=== PATIENT | female | born 1990 | race Hispanic/Latino ===

== ENCOUNTER → 2017-07-05 | Outpatient (CLI) | payer MEDICAID ==
[~2017-07-05] MED LIST: GABA-531 PO; IOPAMIDOL-370 75 ML VIAL IV ONE; NORG1TAB13 PO; ZOLP5TAB2 PO
== END | disposition home or self-care (01) ==
LOC: OIH 09:36
DX: R10.31 Right lower quadrant pain (principal); R10.2 Pelvic and perineal pain
CPT/HCPCS: 74178; Q9967

== ENCOUNTER 2017-08-05 07:22 | Day surgery (SDC) | payer MEDICAID ==
[2017-08-04 16:42] LABS: BASOPHILS % (AUTO) 0.6 % (0.0-5.0); EOSINOPHILS % (AUTO) 3.4 % (0.0-8.0); HEMATOCRIT 36.8 % (36-48); LYMPHOCYTES % (AUTO) 33.4 % (21.0-51.0); MEAN CORPUSCULAR HEMOGLOBIN 27.4 pg (27.0-33.0); MEAN CORPUSCULAR HGB CONC 33.4 g/dL (32.0-36.0); MEAN CORPUSCULAR VOLUME 81.9 fL (79-99); MONOCYTES % (AUTO) 8.9 % (3.0-13.0); NEUTROPHILS % (AUTO) 53.7 % (40.0-77.0); NUCLEATED RED BLOOD CELLS 0.1 % (0.0-0.19); PLATELET COUNT (AUTO) 308 K/uL (130-400); RED BLOOD CELL COUNT(AUTO) 4.49 MIL/uL (4.00-5.50); RED CELL DISTRIBUTION WIDTH 15.1 % (11.0-15.5); WHITE BLOOD COUNT (AUTO) 5.1 K/uL (4.8-10.8)
[2017-08-04 16:59] VITALS: BP 121/72
[~2017-08-05] VITALS: Ht 156.2 cm; Wt 59.7 kg
[2017-08-05] VITALS (14 sets, daily range): BP systolic 104–124; BP diastolic 55–86
[~2017-08-05 07:22] MED LIST changes: -IOPAMIDOL-370 75 ML VIAL IV ONE; -NORG1TAB13 PO
[2017-08-05] MEDS ORDERED: LACTATED RINGERS 1000ML 1,000 ML IV ONE (08:10)
[2017-08-05] MEDS ORDERED: CALDOLOR 800MG+NS 250ML 250 ML IV ONE (08:11)
[2017-08-05] MEDS ORDERED: NORG1TAB13 PO (08:47)
[2017-08-05] MEDS ORDERED: BUPIVACAINE/PF 0.25% 30ML VIAL IJ ONE (09:29)
[2017-08-05] MEDS ORDERED: MIDAZOLAM HCL 1 MG/ML 2ML VIAL ONE (11:21)
[2017-08-05] MEDS ORDERED: PROPOFOL 10 MG/ML 20ML VIAL IV ONE (11:21)
[2017-08-05] MEDS ORDERED: GLYCOPYRROLATE 0.2 MG/ML 5 ML VIAL ONE (11:21)
[2017-08-05] MEDS ORDERED: DEXAMETHASONE SOD PHOSPHATE 10MG/ML 1ML VIAL ONE (11:21)
[2017-08-05] MEDS ORDERED: NEOSTIGMINE 5MG/5ML SYR IV ONE (11:21)
[2017-08-05] MEDS ORDERED: FENTANYL CITRATE PF 50 MCG/1 ML 2ML VIAL ONE (11:21)
[2017-08-05] MEDS ORDERED: LIDOCAINE PF 2% 5ML ABBOJECT ONE (11:21)
[2017-08-05] MEDS ORDERED: MEPERIDINE-PF 25 MG/ML SYG ONE ×2 (12:21→12:37)
== END 2017-08-05 13:53 | disposition home or self-care (01) ==
LOC: DAH 07:22
DX: N73.6 Female pelvic peritoneal adhesions (postinfective) (principal); N80.1 Endometriosis of ovary; J45.909 Unspecified asthma, uncomplicated; G40.89 Other seizures; K21.9 Gastro-esophageal reflux disease without esophagitis; F41.9 Anxiety disorder, unspecified; E66.9 Obesity, unspecified; Z79.899 Other long term (current) drug therapy
CPT/HCPCS: 36415; 58662; 84703; 85025; A4215; A4351; A4510; A4600; A4649; C1769 ×2; J1100; J1741; J2001; J2175 ×2; J2250; J2704; J2710; J3010; J3490 ×2; J7030; J7120 ×2

== ENCOUNTER 2020-12-01 16:06 | Emergency (ER) | payer MEDICAID ==
[~2020-12-01] VITALS: Ht 154.9 cm; Wt 75.7 kg
[~2020-12-01 16:06] MED LIST changes: +NORG1TAB13 PO
[2020-12-01 16:58] LABS: BASOPHILS % (AUTO) 0.3 % (0.0-5.0); EOSINOPHILS % (AUTO) 1.9 % (0.0-8.0); HEMATOCRIT 34.1 % (36-48); LYMPHOCYTES % (AUTO) 22.8 % (21.0-51.0); MEAN CORPUSCULAR HEMOGLOBIN 27.4 pg (27.0-33.0); MEAN CORPUSCULAR HGB CONC 33.4 g/dL (32.0-36.0); MONOCYTES % (AUTO) 7.1 % (3.0-13.0); NEUTROPHILS % (AUTO) 67.6 % (40.0-77.0); PLATELET COUNT (AUTO) 249 K/uL (130-400); RED BLOOD CELL COUNT(AUTO) 4.16 MIL/uL (4.00-5.50); RED CELL DISTRIBUTION WIDTH 15.1 % (11.0-15.5); WHITE BLOOD COUNT (AUTO) 6.9 K/uL (4.8-10.8)
[2020-12-01 17:12] LABS: CREATININE 0.4 mg/dL (0.5-1.5); POTASSIUM 3.6 mmol/L (3.5-5.1)
[2020-12-01 17:22] LABS: ALBUMIN 3.1 g/dL (3.5-5.0); BILIRUBIN,TOTAL 0.2 mg/dL (0.2-1.0); TOTAL PROTEIN, SERUM 7.5 g/dL (6.0-8.3)
[2020-12-01 18:23] VITALS: BP 118/81
== END 2020-12-01 18:23 | disposition home or self-care (01) ==
LOC: EDH 16:06
DX: O20.0 Threatened abortion (principal); Z3A.16 16 weeks gestation of pregnancy; Z79.899 Other long term (current) drug therapy
CPT/HCPCS: 36415; 76805; 80053; 84703; 85025; 86900; 86901

== ENCOUNTER 2020-12-17 22:39 | Emergency (ER) | payer MEDICAID ==
[~2020-12-17] VITALS: Ht 154.9 cm; Wt 72.6 kg
[2020-12-17 23:17] VITALS: BP 100/72
[2020-12-17 23:30] LABS: BASOPHILS % (AUTO) 0.1 % (0.0-5.0); EOSINOPHILS % (AUTO) 1.9 % (0.0-8.0); HEMATOCRIT 31.8 % (36-48); LYMPHOCYTES % (AUTO) 23.2 % (21.0-51.0); MEAN CORPUSCULAR HEMOGLOBIN 27.4 pg (27.0-33.0); MONOCYTES % (AUTO) 6.8 % (3.0-13.0); NEUTROPHILS % (AUTO) 67.6 % (40.0-77.0); PLATELET COUNT (AUTO) 245 K/uL (130-400); RED BLOOD CELL COUNT(AUTO) 3.83 MIL/uL (4.00-5.50); RED CELL DISTRIBUTION WIDTH 15.1 % (11.0-15.5); WHITE BLOOD COUNT (AUTO) 7.8 K/uL (4.8-10.8)
[2020-12-17 23:44] LABS: CREATININE 0.5 mg/dL (0.5-1.5); POTASSIUM 3.2 mmol/L (3.5-5.1)
[2020-12-18 00:10] LABS: ALBUMIN 3.1 g/dL (3.5-5.0); BILIRUBIN,TOTAL 0.2 mg/dL (0.2-1.0); TOTAL PROTEIN, SERUM 7.3 g/dL (6.0-8.3)
[2020-12-18 00:50] VITALS: BP 112/64
[2020-12-18 01:01] LABS: APPEARANCE,URINE Cloudy (CLEAR); BILIRUBIN,URINE Negative (NEGATIVE); COLOR,URINE Yellow (YELLOW); GLUCOSE, URINE (UA) Negative (NEGATIVE); KETONES,URINE 15 mg/dL (NEGATIVE); LEUKOCYTE ESTERASE ,URINE Negative (NEGATIVE); NITRATE,URINE Negative (NEGATIVE); OCCULT BLOOD,URINE Negative (NEGATIVE); PH,URINE 5.5 (5.0-8.0); PROTEIN,URINE Negative (NEGATIVE)
[2020-12-18] MEDS ORDERED: ACETAMINOPHEN 500 MG TABLET ONE (01:47)
[2020-12-18] MEDS ORDERED: KCL 20 MEQ ERTAB PO ONE ×2 (01:47→02:00)
[2020-12-18 01:50] VITALS: BP 115/60
[2020-12-18] MEDS ORDERED: ACETAMINOPHEN 500 MG TABLET PO ONE (02:00)
== END 2020-12-18 01:53 | disposition home or self-care (01) ==
LOC: EDH 22:39
DX: O99.282 Endocrine, nutritional and metabolic diseases complicating pregnancy, second trimester (principal); E87.6 Hypokalemia; O20.9 Hemorrhage in early pregnancy, unspecified; Z3A.18 18 weeks gestation of pregnancy; Z79.899 Other long term (current) drug therapy
CPT/HCPCS: 36415; 76805; 80053; 81003; 83690; 84702; 85025; 86900; 86901; 87088

== ENCOUNTER 2021-03-07 11:29 | Observation (INO) | payer MEDICAID ==
[~2021-03-07] VITALS: Ht 154.9 cm; Wt 81.2 kg
[2021-03-07 11:32] VITALS: BP 107/69
[2021-03-07 13:14] LABS: APPEARANCE,URINE Clear (CLEAR); BILIRUBIN,URINE Negative (NEGATIVE); COLOR,URINE Yellow (YELLOW); GLUCOSE, URINE (UA) Negative (NEGATIVE); KETONES,URINE 15 mg/dL (NEGATIVE); LEUKOCYTE ESTERASE ,URINE Small (NEGATIVE); NITRATE,URINE Negative (NEGATIVE); OCCULT BLOOD,URINE Moderate (NEGATIVE); PH,URINE 5.5 (5.0-8.0); PROTEIN,URINE Negative (NEGATIVE); UROBILINOGEN,URINE 0.2 mg/dL (0.2-1.0)
[2021-03-07 13:26] LABS: AMPHET/METH SCREEN,URINE NEGATIVE (NEGATIVE); BARBITURATE SCREEN, URINE NEGATIVE (NEGATIVE); BENZODIAZEPINES SCREEN,URINE NEGATIVE (NEGATIVE); COCAINE SCREEN,URINE NEGATIVE (NEGATIVE); OPIATE SCREEN,URINE NEGATIVE (NEGATIVE); PHENCYCLIDINE SCREEN,URINE NEGATIVE (NEGATIVE)
[2021-03-07 13:28] LABS: BACTERIA,URINE Rare /HPF (None Seen); RBC,URINE 0-1 /HPF (0-1); SQUAMOUS EPITHELIAL CELL,UR Rare /HPF (0-2); WBC,URINE 0-1 /HPF (0-1)
[2021-03-07] MEDS ORDERED: CELESTONE SOLUSPAN 6 MG/ML 5ML VIAL IM SCH (13:30)
[2021-03-07 13:33] LABS: CANNABINOID SCREEN,URINE NEGATIVE (NEGATIVE)
== END 2021-03-07 13:45 | disposition home or self-care (01) ==
LOC: EDH 11:29 → LDH 11:30
PROVIDERS: ADMIT Specialist; ATTEND Specialist
DX: O46.93 Antepartum hemorrhage, unspecified, third trimester (principal); O62.9 Abnormality of forces of labor, unspecified; O26.893 Other specified pregnancy related conditions, third trimester; R10.2 Pelvic and perineal pain; Z3A.29 29 weeks gestation of pregnancy; Z79.899 Other long term (current) drug therapy
CPT/HCPCS: 59025; 76805; 80305; 81001; 96372; G0378 ×2; G0379; J0702

== ENCOUNTER 2021-03-08 13:58 | Observation (INO) | payer MEDICAID ==
[~2021-03-08] VITALS: Ht 154.9 cm; Wt 77.6 kg
[2021-03-08] MEDS ORDERED: CELESTONE SOLUSPAN 6 MG/ML 5ML VIAL IM SCH (14:30)
[2021-03-08 14:32] VITALS: BP 108/69
== END 2021-03-08 15:25 | disposition home or self-care (01) ==
LOC: LDH 13:58
PROVIDERS: ADMIT Obstetrics & Gynecology; ATTEND Obstetrics & Gynecology
DX: O46.93 Antepartum hemorrhage, unspecified, third trimester (principal); O62.9 Abnormality of forces of labor, unspecified; Z3A.30 30 weeks gestation of pregnancy
CPT/HCPCS: 59025; 96372; G0378

== ENCOUNTER 2021-03-23 08:58 | Observation (INO) | payer MEDICAID ==
[~2021-03-23] VITALS: Ht 154.9 cm; Wt 79.8 kg
[2021-03-23 09:29] LABS: APPEARANCE,URINE CLOUDY (CLEAR); BILIRUBIN,URINE NEGATIVE (NEGATIVE); COLOR,URINE YELLOW (YELLOW); GLUCOSE, URINE (UA) NEGATIVE (NEGATIVE); KETONES,URINE NEGATIVE (NEGATIVE); LEUKOCYTE ESTERASE ,URINE LARGE (NEGATIVE); NITRATE,URINE NEGATIVE (NEGATIVE); OCCULT BLOOD,URINE NEGATIVE (NEGATIVE); PROTEIN,URINE NEGATIVE (NEGATIVE); UROBILINOGEN,URINE 0.2 mg/dL (0.2-1.0)
[2021-03-23 09:47] LABS: BACTERIA,URINE Many /HPF (None Seen); RBC,URINE None Seen /HPF (0-1); YEAST,URINE BUDDING Few /HPF (None Seen)
[2021-03-23 09:48] LABS: MUCUS,URINE Moderate LPF (None Seen); SQUAMOUS EPITHELIAL CELL,UR 30-50 /HPF (0-2)
[2021-03-23 10:16] VITALS: BP 114/71
[2021-03-23] MEDS ORDERED: CLIN-141 PO (12:08)
== END 2021-03-23 10:20 | disposition home or self-care (01) ==
LOC: EDH 08:58 → LDH 08:59
PROVIDERS: ADMIT Obstetrics & Gynecology; ATTEND Obstetrics & Gynecology
DX: O26.893 Other specified pregnancy related conditions, third trimester (principal); L05.91 Pilonidal cyst without abscess; Z3A.31 31 weeks gestation of pregnancy; Z79.899 Other long term (current) drug therapy
CPT/HCPCS: 59025; 81001; 87088; G0378; G0379

== ENCOUNTER 2021-03-23 10:30 | Emergency (ER) | payer MEDICAID ==
[~2021-03-23] VITALS: Ht 154.9 cm; Wt 79.8 kg
[2021-03-23] MEDS ORDERED: LIDOCAINE HCL 1% 10 ML VIAL ONE (10:52)
[2021-03-23 11:47] VITALS: BP 124/72
[2021-03-23] MEDS ORDERED: CLIN-141 PO (12:08)
[2021-03-23] MEDS ORDERED: CLINDAMYCIN 150 MG CAP PO SCH (12:30)
== END 2021-03-23 12:21 | disposition home or self-care (01) ==
LOC: EDH 10:30
DX: O99.713 Diseases of the skin and subcutaneous tissue complicating pregnancy, third trimester (principal); L05.01 Pilonidal cyst with abscess; Z3A.31 31 weeks gestation of pregnancy; Z79.899 Other long term (current) drug therapy
CPT/HCPCS: 10080; 59025; 81001; 87070; 87076; 87088; 99283; G0378; G0379; J3490

== ENCOUNTER 2021-04-19 22:02 | Observation (INO) | payer MEDICAID ==
[~2021-04-19] VITALS: Ht 154.9 cm; Wt 84.4 kg
[~2021-04-19 22:02] MED LIST changes: +CLIN-141 PO
[2021-04-19 22:48] LABS: APPEARANCE,URINE Clear (CLEAR); BILIRUBIN,URINE Negative (NEGATIVE); COLOR,URINE Yellow (YELLOW); GLUCOSE, URINE (UA) Negative (NEGATIVE); KETONES,URINE Negative (NEGATIVE); LEUKOCYTE ESTERASE ,URINE Large (NEGATIVE); NITRATE,URINE Negative (NEGATIVE); OCCULT BLOOD,URINE Negative (NEGATIVE); PROTEIN,URINE Negative (NEGATIVE); UROBILINOGEN,URINE 0.2 mg/dL (0.2-1.0)
[2021-04-19 23:07] LABS: BACTERIA,URINE Few /HPF (None Seen); RBC,URINE 0-1 /HPF (0-1); YEAST,URINE BUDDING Few /HPF (None Seen)
[2021-04-19 23:33] VITALS: BP 118/76
[2021-04-19 23:51] LABS: BASOPHILS % (AUTO) 0.4 % (0.0-5.0); EOSINOPHILS % (AUTO) 1.4 % (0.0-8.0); LYMPHOCYTES % (AUTO) 18.1 % (21.0-51.0); MEAN CORPUSCULAR HEMOGLOBIN 23.4 pg (27.0-33.0); MEAN CORPUSCULAR HGB CONC 30.4 g/dL (32.0-36.0); MEAN CORPUSCULAR VOLUME 77.2 fL (79-99); MONOCYTES % (AUTO) 7.6 % (3.0-13.0); NEUTROPHILS % (AUTO) 71.3 % (40.0-77.0); NUCLEATED RED BLOOD CELLS 0.9 % (0.0-0.19); PLATELET COUNT (AUTO) 198 K/uL (130-400); RED BLOOD CELL COUNT(AUTO) 3.37 MIL/uL (4.00-5.50); RED CELL DISTRIBUTION WIDTH 16.3 % (11.0-15.5); WHITE BLOOD COUNT (AUTO) 7.7 K/uL (4.8-10.8)
[2021-04-20] MEDS ORDERED: LACTATED RINGERS 1000ML IV ONE
[2021-04-20 00:01] LABS: CREATININE 0.5 mg/dL (0.5-1.5); POTASSIUM 3.6 mmol/L (3.5-5.1)
[2021-04-20 00:04] LABS: INR 0.91 (0.85-1.15)
[2021-04-20 00:05] LABS: PARTIAL THROMBOPLASTIN TIME 24.4 SEC (26.3-35.5)
[2021-04-20 00:06] LABS: ALBUMIN 2.6 g/dL (3.5-5.0); BILIRUBIN,TOTAL 0.2 mg/dL (0.2-1.0); TOTAL PROTEIN, SERUM 6.5 g/dL (6.0-8.3); URIC ACID 3.9 mg/dL (2.6-7.2)
[2021-04-20] MEDS ORDERED: ACETAMINOPHEN WITH CODEINE 1 TAB TAB PO PRN (00:30)
== END 2021-04-20 01:00 | disposition home or self-care (01) ==
LOC: EDH 22:02 → LDH 22:03
PROVIDERS: ADMIT Specialist; ATTEND Specialist
DX: O26.893 Other specified pregnancy related conditions, third trimester (principal); R51.9 Headache, unspecified; R03.0 Elevated blood-pressure reading, without diagnosis of hypertension; R10.30 Lower abdominal pain, unspecified; N89.8 Other specified noninflammatory disorders of vagina; O62.9 Abnormality of forces of labor, unspecified; Z3A.36 36 weeks gestation of pregnancy
CPT/HCPCS: 36415; 59025; 80053; 81001; 84550; 85025; 85384; 85610; 85730; 87088; 96360; G0378 ×3; G0379

== ENCOUNTER → 2021-10-15 | Outpatient (CLI) | payer MEDICAID ==
[~2021-10-15] MED LIST changes: +ALPR1TAB7 PO; +AMOX-426 PO; -CLIN-141 PO; +GABA-529 PO; -GABA-531 PO; +IBUP-2077 PO; +LACT1CAP78 PO; -NORG1TAB13 PO; +ONDA4TAB10 PO; +TRAM50TA4 PO; -ZOLP5TAB2 PO
== END | disposition home or self-care (01) ==
LOC: RAH 11:01
PROVIDERS: ATTEND Student in an Organized Health Care Education/Training Program
DX: R10.0 Acute abdomen (principal)
CPT/HCPCS: 76705

== ENCOUNTER → 2022-10-20 | Outpatient (CLI) | payer MEDICAID | END | disposition home or self-care (01) | LOC: SHCH 07:54 | PROVIDERS: ATTEND Internal Medicine Cardiovascular Disease | DX: I47.1 Supraventricular tachycardia (principal) | CPT/HCPCS: 93306 ==

== ENCOUNTER 2022-11-17 08:10 | Observation (INO) | payer MEDICAID ==
[2022-11-12 13:21] LABS: BASOPHILS % (AUTO) 0.5 % (0.0-5.0); EOSINOPHILS % (AUTO) 1.6 % (0.0-8.0); HEMATOCRIT 40.5 % (36-48); LYMPHOCYTES % (AUTO) 19.7 % (21.0-51.0); MEAN CORPUSCULAR HEMOGLOBIN 27.8 pg (27.0-33.0); MEAN CORPUSCULAR HGB CONC 32.3 g/dL (32.0-36.0); MEAN CORPUSCULAR VOLUME 85.8 fL (79-99); MONOCYTES % (AUTO) 6.2 % (3.0-13.0); NEUTROPHILS % (AUTO) 71.3 % (40.0-77.0); PLATELET COUNT (AUTO) 262 K/uL (130-400); RED BLOOD CELL COUNT(AUTO) 4.72 MIL/uL (4.00-5.50); RED CELL DISTRIBUTION WIDTH 14.2 % (11.0-15.5); WHITE BLOOD COUNT (AUTO) 7.5 K/uL (4.8-10.8)
[2022-11-12 13:26] LABS: CREATININE 0.6 mg/dL (0.5-1.5); POTASSIUM 4.7 mmol/L (3.5-5.1)
[2022-11-12 13:29] LABS: INR 0.93 (0.85-1.15); PROTHROMBIN TIME 10.4 SEC (9.6-11.6)
[2022-11-12 13:30] LABS: PARTIAL THROMBOPLASTIN TIME 28.5 SEC (26.3-35.5)
[2022-11-12 13:42] VITALS: BP 132/81; PULSE 92; RESP 16
[2022-11-17] VITALS (8 sets, daily range): BP systolic 110–137; BP diastolic 73–88; PULSE 73–121; RESP 16–18
[~2022-11-17] VITALS: Ht 154.9 cm; Wt 80.8 kg
[~2022-11-17 08:10] MED LIST changes: +0.9%NACL 1000ML 1,000 ML IV SCH; -ALPR1TAB7 PO; +ALPR2TAB7 PO; -AMOX-426 PO; +FERR-82 PO; -GABA-529 PO; -IBUP-2077 PO; -LACT1CAP78 PO; +NAPROXEN PO; -ONDA4TAB10 PO; +SYMBICORT IH; -TRAM50TA4 PO; +ZOLOFT PO
[2022-11-17 09:31] LABS: CREATININE 0.6 mg/dL (0.5-1.5); POTASSIUM 3.9 mmol/L (3.5-5.1)
[2022-11-17] MEDS ORDERED: LIDOCAINE HCL 400MG/20ML VIAL ONE (10:53)
[2022-11-17] MEDS ORDERED: HEPARIN 10,000 UNIT/10ML (1,000 UNIT/ML) VIAL ONE (10:53)
[2022-11-17] MEDS ORDERED: MIDAZOLAM HCL 1 MG/ML 2ML VIAL ONE ×6 (12:26→14:38)
[2022-11-17] MEDS ORDERED: MEPERIDINE-PF 25 MG/ML SYG ONE ×6 (12:27→14:38)
[2022-11-17] MEDS ORDERED: ISOPROTERENOL HCL 0.2 MG/ML AMP/VIAL/BAG ONE (12:33)
[2022-11-17] MEDS ORDERED: ADENOSINE 90MG VIAL IV ONE (14:11)
[2022-11-17] MEDS ORDERED: ACETAMINOPHEN 325 MG TAB PO PRN (16:00)
[2022-11-17] MEDS ORDERED: ALPRAZOLAM 1 MG TAB PO PRN (16:30)
[2022-11-17] MEDS: ACETAMINOPHEN WITH CODEINE 1 TAB TAB PO PRN ×2 (17:34→22:15)
[2022-11-17 18:48] LABS: HEMATOCRIT 35.1 % (36-48); MEAN CORPUSCULAR HEMOGLOBIN 28.3 pg (27.0-33.0); MEAN CORPUSCULAR HGB CONC 31.3 g/dL (32.0-36.0); MEAN CORPUSCULAR VOLUME 90.2 fL (79-99); RED BLOOD CELL COUNT(AUTO) 3.89 MIL/uL (4.00-5.50); RED CELL DISTRIBUTION WIDTH 14.6 % (11.0-15.5); WHITE BLOOD COUNT (AUTO) 7.6 K/uL (4.8-10.8)
[2022-11-18] VITALS: BP 94/60; PULSE 82; RESP 18
[2022-11-18] MEDS: ACETAMINOPHEN WITH CODEINE 1 TAB TAB PO PRN ×3 (02:34→10:22)
[2022-11-18 04:30] VITALS: BP 100/62; PULSE 81; RESP 18
[2022-11-18 07:44] VITALS: BP 97/64; PULSE 97; RESP 18
[2022-11-18] MEDS ORDERED: SERTRALINE HCL 50 MG TABLET PO SCH (09:00)
[2022-11-18] MEDS ORDERED: TRAM50TA4 PO (09:41)
[2022-11-18 09:52] LABS: HEMATOCRIT 31.9 % (36-48); MEAN CORPUSCULAR HEMOGLOBIN 27.9 pg (27.0-33.0); MEAN CORPUSCULAR HGB CONC 32.3 g/dL (32.0-36.0); MEAN CORPUSCULAR VOLUME 86.4 fL (79-99); PLATELET COUNT (AUTO) 222 K/uL (130-400); RED BLOOD CELL COUNT(AUTO) 3.69 MIL/uL (4.00-5.50); RED CELL DISTRIBUTION WIDTH 14.5 % (11.0-15.5); WHITE BLOOD COUNT (AUTO) 4.5 K/uL (4.8-10.8)
[2022-11-18] MEDS ORDERED: LACTULOSE 20 GM/30 ML UDCUP ONE (11:10)
[2022-11-18 11:21] LABS: EOSINOPHILS % (MANUAL) 4 % (1-6); LYMPHOCYTES % (MANUAL) 19 % (22-44); MAN.DIFF COMMENT-IMPRESSION MANUAL DIFFERENTIAL; MONOCYTES % (MANUAL) 2 % (2-9); PLATELET MORPHOLOGY COMMENT ADEQUATE; SEGMENTED NEUTROPHILS % 75 % (40-70)
[2022-11-18] MEDS ORDERED: LACTULOSE 20 GM/30 ML UDCUP PO ONE (11:30)
== END 2022-11-18 11:05 | disposition home or self-care (01) ==
LOC: DAH 08:10 → DAHIP 08:11 → 2DH 16:28
PROVIDERS: ADMIT Internal Medicine Cardiovascular Disease; ATTEND Internal Medicine Cardiovascular Disease
DX: I47.1 Supraventricular tachycardia (principal); I48.0 Paroxysmal atrial fibrillation; G47.30 Sleep apnea, unspecified; Z79.899 Other long term (current) drug therapy
CPT/HCPCS: 80048 ×2; 84703 ×2; 85025 ×2; 85610; 85730; 36415 ×3; 93005 ×2; 93623; 93653; 85027; C1894 ×7; C1732 ×2; C1730 ×3; A4649 ×2; G0378 ×19; J3490 ×3; J1644 ×2; J2250 ×6; J2175 ×6; A4215; A4223 ×3; A4222; A4221; A4663; A4216; A4606; 99156; 99157; J0153

== ENCOUNTER 2023-02-11 16:29 | Emergency (ER) | payer MEDICAID, OTHER ==
[~2023-02-11] VITALS: Ht 167.6 cm; Wt 83.9 kg
[~2023-02-11 16:29] MED LIST changes: -0.9%NACL 1000ML 1,000 ML IV SCH; +TRAM50TA4 PO
[2023-02-11 16:59] LABS: APPEARANCE,URINE CLEAR (CLEAR); BILIRUBIN,URINE NEGATIVE (NEGATIVE); COLOR,URINE LIGHT-YELLOW (YELLOW); GLUCOSE, URINE (UA) NEGATIVE (NEGATIVE); KETONES,URINE NEGATIVE (NEGATIVE); LEUKOCYTE ESTERASE ,URINE 75 Leu/uL (NEGATIVE); NITRATE,URINE NEGATIVE (NEGATIVE); OCCULT BLOOD,URINE NEGATIVE (NEGATIVE); PROTEIN,URINE NEGATIVE (NEGATIVE); UROBILINOGEN,URINE 0.2 mg/dL (0.2-1.0)
[2023-02-11 17:00] LABS: ADD UA MICROSCOPIC YES
[2023-02-11 17:02] LABS: HCG,QUALITATIVE URINE NEGATIVE (NEGATIVE)
[2023-02-11 17:03] LABS: BACTERIA,URINE RARE /HPF (None Seen); MUCUS,URINE RARE LPF (None Seen); SQUAMOUS EPITHELIAL CELL,UR FEW /HPF (0-2)
[2023-02-11 17:04] LABS: BASOPHILS # (AUTO) 0.05 K/uL (0.00-0.20); BASOPHILS % (AUTO) 0.7 % (0.0-5.0); EOSINOPHILS # (AUTO) 0.23 K/uL (0.00-0.70); EOSINOPHILS % (AUTO) 3.1 % (0.0-8.0); HEMATOCRIT 35.4 % (36-48); IMMATURE GRANULOCYTE ABSOLUTE 0.03 K/uL (0-1); MEAN CORPUSCULAR HEMOGLOBIN 26.2 pg (27.0-33.0); MEAN CORPUSCULAR HGB CONC 31.9 g/dL (32.0-36.0); MEAN CORPUSCULAR VOLUME 82.1 fL (79-99); MONOCYTES # (AUTO) 0.6 K/uL (0.1-1.0); MONOCYTES % (AUTO) 7.7 % (3.0-13.0); NEUTROPHILS # (AUTO) 4.5 K/uL (1.8-7.7); NEUTROPHILS % (AUTO) 61.1 % (40.0-77.0); PLATELET COUNT (AUTO) 265 K/uL (130-400); RED BLOOD CELL COUNT(AUTO) 4.31 MIL/uL (4.00-5.50); RED CELL DISTRIBUTION WIDTH 14.5 % (11.0-15.5); WHITE BLOOD COUNT (AUTO) 7.4 K/uL (4.8-10.8)
[2023-02-11 17:12] LABS: CREATININE 0.8 mg/dL (0.5-1.5); POTASSIUM 3.9 mmol/L (3.5-5.1)
[2023-02-11 17:18] LABS: ALBUMIN 3.8 g/dL (3.5-5.0); BILIRUBIN,TOTAL 0.2 mg/dL (0.2-1.0); TOTAL PROTEIN, SERUM 7.9 g/dL (6.0-8.3)
[2023-02-11] MEDS ORDERED: KETOROLAC 30MG VIAL (30MG/ML) IVP ONE (18:00)
[2023-02-11] MEDS ORDERED: FAMOTIDINE 20MG VIAL IV ONE (18:00)
[2023-02-11] MEDS ORDERED: 0.9%NACL 1000ML 1,000 ML IV ONE (18:00)
[2023-02-11] MEDS ORDERED: CEFTRIAXONE 1G VIAL IVPB ONE (18:00)
[2023-02-11] MEDS ORDERED: ONDANSETRON 4MG INJ IVP ONE (18:00)
[2023-02-11] MEDS ORDERED: KETOROLAC 60 MG VIAL (30MG/ML) IM ONE (18:22)
[2023-02-11] MEDS ORDERED: LIDOCAINE HCL 2% VISCOUS 15 ML UDCUP PO ONE (21:00)
[2023-02-11] MEDS ORDERED: MAG/ALUM/SIMETH 30 ML UDCUP PO ONE (21:00)
[2023-02-11] MEDS ORDERED: DICYCLOMINE HCL 10 MG/5 ML ML PO ONE (21:00)
[2023-02-11] MEDS ORDERED: FAMO20TA8 PO (21:49)
[2023-02-11] MEDS ORDERED: ONDA4TAB10 PO (21:49)
[2023-02-11] MEDS ORDERED: CEFD300C3 PO (21:49)
[2023-02-11 22:08] VITALS: BP 127/74; PULSE 88; RESP 20; O2SAT 99
== END 2023-02-11 22:16 | disposition home or self-care (01) ==
LOC: EDH 16:29
DX: K29.70 Gastritis, unspecified, without bleeding (principal); N39.0 Urinary tract infection, site not specified; I10 Essential (primary) hypertension; Z79.899 Other long term (current) drug therapy; Z98.890 Other specified postprocedural states
CPT/HCPCS: 99285; 96374; 71045; 96375; 84484; 80053; 83690; 85025; 87077; 87088; 87186; 81001; 81025; 36415; 93005; 96372; J3490; J7030; J0696; J2405; J1885

== ENCOUNTER 2023-06-03 22:00 | Emergency (ER) | payer OTHER ==
[~2023-06-03] VITALS: Ht 154.9 cm; Wt 71.7 kg
[~2023-06-03 22:00] MED LIST changes: +CEFD300C3 PO; +FAMO20TA8 PO; +ONDA4TAB10 PO
[2023-06-03 23:20] LABS: BASOPHILS # (AUTO) 0.03 K/uL (0.00-0.20); BASOPHILS % (AUTO) 0.5 % (0.0-5.0); EOSINOPHILS # (AUTO) 0.19 K/uL (0.00-0.70); EOSINOPHILS % (AUTO) 3.1 % (0.0-8.0); HEMATOCRIT 38.3 % (36-48); IMMATURE GRANULOCYTE ABSOLUTE 0.02 K/uL (0-1); LYMPHOCYTES # (AUTO) 1.7 K/uL (1.0-4.8); LYMPHOCYTES % (AUTO) 27.6 % (21.0-51.0); MEAN CORPUSCULAR HEMOGLOBIN 28.1 pg (27.0-33.0); MEAN CORPUSCULAR HGB CONC 32.9 g/dL (32.0-36.0); MEAN CORPUSCULAR VOLUME 85.3 fL (79-99); MONOCYTES # (AUTO) 0.4 K/uL (0.1-1.0); NEUTROPHILS # (AUTO) 3.7 K/uL (1.8-7.7); NEUTROPHILS % (AUTO) 61.5 % (40.0-77.0); PLATELET COUNT (AUTO) 253 K/uL (130-400); RED BLOOD CELL COUNT(AUTO) 4.49 MIL/uL (4.00-5.50)
[2023-06-03] MEDS: ACETAMINOPHEN 500 MG TABLET PO ONE (23:31)
[2023-06-03] MEDS: LACTATED RINGERS 1000ML 1,000 ML IV ONE (23:31)
[2023-06-03 23:37] LABS: CREATININE 0.6 mg/dL (0.5-1.5); POTASSIUM 3.2 mmol/L (3.5-5.1)
[2023-06-03 23:41] LABS: ALBUMIN 3.7 g/dL (3.5-5.0); BILIRUBIN,TOTAL 0.1 mg/dL (0.2-1.0); MAGNESIUM 2.2 mg/dL (1.80-2.40); TOTAL PROTEIN, SERUM 7.4 g/dL (6.0-8.3)
[2023-06-03 23:44] LABS: APPEARANCE,URINE CLEAR (CLEAR); BILIRUBIN,URINE NEGATIVE (NEGATIVE); COLOR,URINE LIGHT-YELLOW (YELLOW); GLUCOSE, URINE (UA) NEGATIVE (NEGATIVE); KETONES,URINE 10 mg/dL (NEGATIVE); LEUKOCYTE ESTERASE ,URINE NEGATIVE Leu/uL (NEGATIVE); NITRATE,URINE NEGATIVE (NEGATIVE); OCCULT BLOOD,URINE NEGATIVE (NEGATIVE); PROTEIN,URINE NEGATIVE (NEGATIVE); UROBILINOGEN,URINE 0.2 mg/dL (0.2-1.0)
[2023-06-03 23:45] LABS: ADD UA MICROSCOPIC NO
[2023-06-03 23:51] LABS: AMPHET/METH SCREEN,URINE NEGATIVE (NEGATIVE); BARBITURATE SCREEN, URINE NEGATIVE (NEGATIVE); BENZODIAZEPINES SCREEN,URINE POSITIVE (NEGATIVE); CANNABINOID SCREEN,URINE NEGATIVE (NEGATIVE); COCAINE SCREEN,URINE NEGATIVE (NEGATIVE); OPIATE SCREEN,URINE NEGATIVE (NEGATIVE); PHENCYCLIDINE SCREEN,URINE NEGATIVE (NEGATIVE)
[2023-06-03 23:59] LABS: RAPID GROUP A STREP positive (NEGATIVE)
[2023-06-04 00:06] LABS: SARS-CoV-2, RNA, NAAT NEGATIVE SARS CoV-2 (NEGATIVE)
[2023-06-04 00:07] LABS: INFLUENZA TYPE A Negative For Type A (NEGATIVE); INFLUENZA TYPE B Negative For Type B (NEGATIVE)
[2023-06-04] MEDS: PANTOPRAZOLE 40 MG/VIAL IVP STA (00:32)
[2023-06-04] MEDS: CEFTRIAXONE 1G VIAL IVPB STA (00:32)
[2023-06-04 01:30] VITALS: BP 132/66; PULSE 88; RESP 18; O2SAT 99
[2023-06-04] MEDS ORDERED: AMOX500C2 PO (02:09)
[2023-06-04] MEDS: KCL 20 MEQ ERTAB PO ONE (02:17)
== END 2023-06-04 02:29 | disposition home or self-care (01) ==
LOC: EDH 22:00
DX: R07.89 Other chest pain (principal); K44.9 Diaphragmatic hernia without obstruction or gangrene; E87.6 Hypokalemia; J02.0 Streptococcal pharyngitis; I10 Essential (primary) hypertension; Z20.822 Contact with and (suspected) exposure to COVID-19; Z79.899 Other long term (current) drug therapy; Z98.890 Other specified postprocedural states
CPT/HCPCS: 99285; 71045; 87635; 96361; 82550; 83735; 84484; 80053; 80305; 84703; 85025; 85378; 87880; 87804 ×2; 36415; 93005; 81003; 96374; 96375; J7120; J0696; C9113

== ENCOUNTER 2023-08-05 08:10 | Emergency (ER) | payer OTHER ==
[~2023-08-05] VITALS: Ht 154.9 cm; Wt 70.3 kg
[~2023-08-05 08:10] MED LIST changes: +AMOX500C2 PO
[2023-08-05 08:12] VITALS: BP 121/80; PULSE 77; RESP 12; O2SAT 100
[2023-08-05] MEDS ORDERED: IBUP-2071 PO (08:41)
[2023-08-05] MEDS ORDERED: HYDR-4060 PO (08:41)
[2023-08-05] MEDS ORDERED: CYCL10TA16 PO (08:41)
[2023-08-05] MEDS ORDERED: KETOROLAC 60 MG VIAL (30MG/ML) IM ONE (09:00)
[2023-08-05] MEDS: KETOROLAC 30MG VIAL (30MG/ML) IM ONE (09:38)
[2023-08-05] MEDS: ORPHENADRINE CITRATE 30 MG/ML ML IJ ONE (09:39)
== END 2023-08-05 11:03 | disposition home or self-care (01) ==
LOC: EDH 08:10
DX: M54.9 Dorsalgia, unspecified (principal); M19.031 Primary osteoarthritis, right wrist; M19.041 Primary osteoarthritis, right hand; E03.9 Hypothyroidism, unspecified; F41.9 Anxiety disorder, unspecified; I10 Essential (primary) hypertension; J45.909 Unspecified asthma, uncomplicated; Z79.51 Long term (current) use of inhaled steroids; Z98.51 Tubal ligation status
CPT/HCPCS: 99284; 96372 ×2; J1885; J2360